=== PATIENT | female | born 1965 | race Caucasian/White ===

== ENCOUNTER 2021-03-16 20:35 | Emergency (ER) | payer BC ==
[~2021-03-16] VITALS: Ht 177.8 cm; Wt 127.0 kg
[2021-03-16] MEDS ORDERED: LOSA25 (20:52)
[2021-03-16] MEDS ORDERED: VENL25 (20:52)
[2021-03-16] MEDS ORDERED: SLEEP MED (20:53)
[2021-03-16] MEDS ORDERED: ALPR.25 (20:53)
[2021-03-16 21:09] LABS: BASOPHILS ABSOLUTE AUTO 0.06 K/mm3 (0.00-0.23); BASOPHILS PERCENT AUTO 0 % (0-2); EOSINOPHILS ABSOLUTE AUTO 0.33 K/mm3 (0.00-0.68); EOSINOPHILS PERCENT AUTO 2 % (0-6); Hematocrit 43.7 % (33.0-51.0); Hemoglobin 14.8 g/dL (11.5-16.0); IMMATURE GRAN ABSOLUTE AUTO 0.05 K/mm3 (0.00-0.10); IMMATURE GRAN PERCENT AUTO 0 % (0-1); LYMPHOCYTES ABSOLUTE AUTO 4.45 K/mm3 (0.84-5.20); LYMPHOCYTES PERCENT AUTO 31 % (21-46); MONOCYTES ABSOLUTE AUTO 0.88 K/mm3 (0.16-1.47); MONOCYTES PERCENT AUTO 6 % (4-13); Mean Corpuscular HGB 29.7 pg (26.0-34.0); Mean Corpuscular HGB Conc 33.9 g/dL (31.5-36.5); Mean Corpuscular Volume 88 fL (80-100); Mean Platelet Volume 10.5 fL (9.1-12.4); NEUTROPHILS ABSOLUTE AUTO 8.54 K/mm3 (1.96-9.15); NEUTROPHILS PERCENT AUTO 60 % (41-73); Platelet Count 372 K/mm3 (150-400); RDW Coefficient Variation 12.5 % (11.7-14.2); RDW Standard Deviation 40.5 fL (35.1-46.3); Red Blood Cell Count 4.98 M/mm3 (3.80-5.20); White Blood Cell Count 14.31 K/mm3 (4.00-11.30)
[2021-03-16 21:55] LABS: Alanine Aminotransfer (ALT/SGP 35 U/L (12-78); Albumin, Blood 4.1 g/dL (3.4-5.0); Albumin/Globulin Ratio 1.2 (0.8-1.8); Alk Phos 96 U/L (50-136); Anion Gap 7 mmol/L (6-16); Aspartate Aminotrans (AST/SGOT 19 U/L (12-37); Bilirubin, Total 0.4 mg/dL (0.1-1.0); Blood Urea Nitrogen 14 mg/dL (8-24); Bun/Creatinine Ratio 15.6 (12.0-20.0); CO2, Blood 29 mmol/L (21-32); Calcium, Blood 9.6 mg/dL (8.5-10.1); Chloride, Blood 104 mmol/L (98-108); Globulin, Blood 3.4 g/dL (2.2-4.0); Glomerular Filtration Rate >60 (60-); Glucose, Blood 154 mg/dL (70-99); Potassium, Blood 3.9 mmol/L (3.5-5.5); Sodium, Blood 140 mmol/L (136-145); Total Protein, Blood 7.5 g/dL (6.4-8.2)
[2021-03-16 22:38] LABS: PCO2 Arterial 41.5 mmHg (35-45); pH Blood Arterial 7.43 (7.35-7.45)
== END 2021-03-16 23:27 | disposition home or self-care (01) ==
LOC: ER 20:35
PROVIDERS: Physician Assistant
DX: L81.9 Disorder of pigmentation, unspecified (principal)
CPT/HCPCS: 36415; 36600; 80053; 82375; 82803; 85025; 99283